=== PATIENT | female | born 1970 | race Caucasian/White ===

== ENCOUNTER 2022-03-22 00:39 | Day surgery (SDC) | payer OTHER, SELFPAY ==
[2022-03-12 10:51] VITALS: BMI 43.1
[2022-03-22 06:35] VITALS: BP 134/78; PULSE 82; RESP 18; TEMP 36.2; O2SAT 99; BMI 42.3
[2022-03-22] MEDS: LACTATED RINGERS 1,000 ML 150 ML IV CONT (06:49)
--- NOTE | 2022-03-22 06:59 | P.PNAN_ITS ---
Anes - Initial Pre Proc Eval Procedure: Operation Date: 03/22/22 07:30 Proposed Procedures p Screening Colonoscopy - Skyler Laguna MD Date/Time: 03/22/22 06:59 Surgeon: Skyler Laguna MD Pre Op Diagnosis: neoplasm screening Patient Data Age: 51 Gender: F Height: 1.63 m Weight: 111.8 kg Last Vital Signs Temp 36.2 C L 03/22/22 06:35 Pulse 82 03/22/22 06:35 Resp 18 03/22/22 06:35 BP 134/78 03/22/22 06:35 Pulse Ox 99 03/22/22 06:35 O2 Del Method Room Air 03/22/22 06:35 Allergies Allergy/AdvReac Type Severity Reaction Status Date / Time No Known Allergies Allergy Verified 03/22/22 06:33 Home Medications Medication Instructions Recorded Confirmed Type Iron (ferrous sulfate) 1 tab-cap PO DAILY 03/12/22 03/22/22 History Vitamin D3 1 tab-cap PO DAILY 03/12/22 03/22/22 History krill oil 1 tab-cap BYMOUTH DAILY 03/12/22 03/22/22 History Patient hx anesthesia problems: none Family hx anesthesia problems: none Results Review: All pre-operative results and documents have been reviewed as part of the pre- operative evaluation. [facility] Past Medical History Medical History CYNTHIA (obstructive sleep apnea) Social History Social History Smoking status: Never smoker Alcohol intake: current Alcohol use details: socially Substance use: never Substance use type: does not use Living arrangements: with family Spiritual care concerns: No Anes - Eval Final PreProcedure Day of Procedure 03/22/22 06:59 Patient weight: morbidly obese Heart: regular rate and rhythm Lungs: clear to auscultation Airway: Mallampati scale class II Neurological: alert and oriented Last oral intake: >/= 8 hours ASA classification: III Emergent: no Anesthetic plan: proceed Anesthesia type and monitoring: general GIVS and standard monitoring Results Review: All pre-operative results and documents have been reviewed as part of the pre- operative evaluation. Informed Consent: The patient's anesthetic plan and its attendant risks and benefits were discussed with the patient/family/POA. Questions were solicited and answers provided to the satisfaction of the patient/family/POA.
--- NOTE | 2022-03-22 07:19 | PM.HPGS ---
History of Present Illness History of Present Illness Consent: Risks, benefits, and alternatives have been discussed and questions answered. Patient agrees to proceed with procedure. Chief complaint: neoplasm screening Narrative: Janee Adan is a 51 year old female here for first screening colonoscopy Review of Systems Constitutional: Constitutional: Denies headache(s) and Denies weakness Eyes: Eyes: Denies blurry vision ENT: Reports Normal hearing present, Denies headache(s) and Denies neck pain Cardiovascular: Cardiovascular: Denies chest pain and Denies dyspnea Respiratory: Respiratory: Denies dyspnea Gastrointestinal: Gastrointestinal: Reports no additional gastrointestinal complaints Genitourinary: Genitourinary: Denies dysuria Musculoskeletal: Musculoskeletal: Denies neck pain Integumentary/Breasts: Skin/Breast: Denies dry skin Neurologic: Reports Normal hearing present, Denies headache(s) and Denies weakness Psychiatric: Psychiatric: Denies anxiety Endocrine: Endocrine: Denies change in body appearance Hematologic/Lymphatic: Hematologic/Lymphatic: Denies easy bleeding Allergic/Immunologic: Allergic/Immunologic: Denies urticaria [facility] Past Medical History Medical History (Updated 03/22/22 @ 07:20 by Skyler Laguna MD) Colon cancer screening CYNTHIA (obstructive sleep apnea) Social History Social History Smoking status: Never smoker Alcohol intake: current Alcohol use details: socially Substance use: never Substance use type: does not use Living arrangements: with family Spiritual care concerns: No Meds Home Medications and Allergies Home Medications Medication Instructions Recorded Confirmed Type Iron (ferrous sulfate) 1 tab-cap PO DAILY 03/12/22 03/22/22 History Vitamin D3 1 tab-cap PO DAILY 03/12/22 03/22/22 History krill oil 1 tab-cap BYMOUTH DAILY 03/12/22 03/22/22 History Allergies Allergy/AdvReac Type Severity Reaction Status Date / Time No Known Allergies Allergy Verified 03/22/22 06:33 Vital Signs Vital Signs - 24 hr 03/22/22 06:35 Temperature 97.1 F L Pulse Rate 82 Respiratory Rate 18 Blood Pressure 134/78 Pulse Oximetry 99 Oxygen Delivery Room Air Exam Const: General: comfortable and no acute distress HENMT: Face/Nose/Sinus: Normal nares present Eyes: General: appearance normal, both eyes and all related structures Neck: Neck: no JVD Resp: Auscultation: clear to auscultation bilaterally Cardio: Rate: regular rate Rhythm: regular rhythm GI: Inspection: non-distended GI Palp: Yes Soft to palpation Skin: General skin exam: normal color Neuro: General: gait normal Speech: normal speech Extrem: General: normal to inspection Psych: Mental Status: mental status grossly normal Assessment and Plan Assessment and plan (1) Colon cancer screening: Code(s): Z12.11 - Encounter for screening for malignant neoplasm of colon Status: Acute Assessment and Plan: colonoscopy
[2022-03-22 07:51] VITALS: BP 117/70; PULSE 79; RESP 19; O2SAT 99
[2022-03-22 08:01] VITALS: BP 121/78; PULSE 75; RESP 23; O2SAT 100
[2022-03-22 08:11] VITALS: BP 134/80; PULSE 71; RESP 16; O2SAT 100
== END 2022-03-22 08:18 | disposition home or self-care (01) ==
PROVIDERS: PCP Student in an Organized Health Care Education/Training Program; Visit Provider Internal Medicine Gastroenterology
PROC: 0DJD8ZZ Inspection of Lower Intestinal Tract, Via Natural or Artificial Opening Endoscopic (ICD-10-PCS; CPT 45378; principal; 2022-03-22 07:30)
DX: Z12.11 Encounter for screening for malignant neoplasm of colon (principal); K57.30 Diverticulosis of large intestine without perforation or abscess without bleeding; K64.8 Other hemorrhoids; G47.33 Obstructive sleep apnea (adult) (pediatric); E66.01 Morbid (severe) obesity due to excess calories; Z68.41 Body mass index [BMI] 40.0-44.9, adult
CPT/HCPCS: 45378; J2704; J7120

== ENCOUNTER → 2022-07-24 08:23 | Outpatient (CLI) | payer OTHER, SELFPAY ==
--- NOTE | ~2022-07-24 | MR_ITS ---
EXAMINATION: MR brain/brain stem wo/w con DATE: 07/24/2022 09:45 INDICATION: Vertigo. TECHNIQUE: Magnetic resonance imaging (MRI) of the brain and brainstem was performed without and with 20 mL MultiHance intravenous contrast. COMPARISON: Head CT 07/11/2014 FINDINGS: There is a punctate focus of increased T2-weighted signal intensity in the left frontal lob e, which is normal as an isolated finding. There is no intracranial hemorrhage, acute infarction, or abnormal intracranial mass lesion. The ventricles are normal in size. There is mild mucosal thickenin g in left maxillary sinus. The orbits are normal. The mastoid air cells are normal. IMPRESSION: 1. Normal brain. Reviewed, dictated and finalized at location A. IMPRESSION: 1. Normal brain.
== END ==
PROVIDERS: PCP Student in an Organized Health Care Education/Training Program; Visit Provider Student in an Organized Health Care Education/Training Program
DX: R42 Dizziness and giddiness (principal)
CPT/HCPCS: 70553; A9577

== ENCOUNTER 2023-01-29 17:13 | Emergency (ER) | payer OTHER, SELFPAY ==
[2023-01-29 17:45] VITALS: BP 150/74; PULSE 105; RESP 20; TEMP 36.8; O2SAT 98
--- NOTE | 2023-01-29 18:12 | ED.URI ---
HPI - URI/Sore Throat General Chief Complaint: Upper Respiratory Infection Stated Complaint: Sinus Time Seen by Provider: 01/29/23 17:50 Source: patient Mode of arrival: ambulatory Limitations: no limitations History of Present Illness HPI Narrative: Janee is a 52-year-old female patient presenting to the clinic today with complaints of runny nose, cough, ear pain, and sore throat. Symptoms have been going on for 2 days. She reports at the beginning of last month she had COVID. Got her flu shot on Friday and symptoms began on Friday. She denies any known fever, chills, or body aches. MD elicited complaint: cough, sore throat, rhinorrhea, nasal congestion and other (Ear pain) Related Data Home Medications Medication Instructions Recorded Confirmed Iron (ferrous sulfate) 1 tab-cap PO DAILY 03/12/22 01/29/23 Vitamin D3 1 tab-cap PO DAILY 03/12/22 01/29/23 krill oil 1 tab-cap BYMOUTH DAILY 03/12/22 01/29/23 Allergies Allergy/AdvReac Type Severity Reaction Status Date / Time No Known Allergies Allergy Verified 01/29/23 17:48 Review of Systems Review of Systems: Pertinent positives per HPI. Patient denies any fever, chills, rash, headache, visual changes, dizziness, shortness of breath, chest pain, palpitations, nausea, vomiting, diarrhea, constipation, abdominal pain, or any urinary issues. PMFSH Past Medical History Medical History Colon cancer screening CYNTHIA (obstructive sleep apnea) Social History Social History Smoking status: Never smoker Alcohol intake: current Alcohol use details: socially Substance use: never Substance use type: does not use Living arrangements: with family Spiritual care concerns: No Comments At the time of my signature, I reviewed and agree with the nursing past medical, surgical, social, and family history. There is no relevant family history pertinent to the patient complaint. Exam Narrative: General: Well-developed, well nourished, in no apparent distress Head: Normocephalic, atraumatic Eyes: Pupils equally round and reactive to light bilaterally, EOM intact, sclera and conjunctive clear, no discharge, lids normal Ears: TMs intact and congested, ear canals clear, no drainage, grossly hearing normal. Nose: Nares patent, clear discharge, no inflammation, no sinus tenderness. Mouth: Oral pharynx red without lesions or masses, good dentition, MMM. Postnasal drip Neck: Supple, trachea midline, no enlargement of anterior or posterior cervical nodes, no thyroid masses or goiter palpable. Cardio: Regular rate and rhythm, s1 and s2 normal, no murmur appreciated. Resp: Clear to auscultation bilaterally, no rhonchi, rales, wheezing or rubs Course Course Emergency Course: Portions of this record may have been created with voice recognition software. Level of Care: Express Care Visit Vital Signs Vital signs: Vital Signs Temperature 36.8 C 01/29/23 17:45 Pulse Rate 105 H 01/29/23 17:45 Respiratory Rate 20 01/29/23 17:45 Blood Pressure 150/74 H 01/29/23 17:45 Pulse Oximetry 98 01/29/23 17:45 Oxygen Delivery Room Air 01/29/23 17:45 Temperature 36.8 C 01/29/23 17:45 Pulse Rate 105 H 01/29/23 17:45 Respiratory Rate 20 01/29/23 17:45 Blood Pressure 150/74 H 01/29/23 17:45 Pulse Oximetry 98 01/29/23 17:45 Oxygen Delivery Room Air 01/29/23 17:45 Vital signs reviewed MDM - URI/Sore Throat MDM Narrative Medical decision making narrative: At the time of visit patient is resting comfortably on exam table. Strep screen was obtained and negative in the clinic today. We will send for culture. I suspect patient has URI with postnasal drip with pharyngitis. Supportive measures were discussed with the patient she voiced understanding discharge instructions and agrees to treatment plan. Prescription for pr
== END 2023-01-29 18:19 | disposition home or self-care (01) ==
PROVIDERS: Emergency Provider Nurse Practitioner Family; PCP Student in an Organized Health Care Education/Training Program
DX: J06.9 Acute upper respiratory infection, unspecified (principal); B34.9 Viral infection, unspecified; R09.82 Postnasal drip; J02.9 Acute pharyngitis, unspecified
CPT/HCPCS: 87081; 87880; 99213; G0463

== ENCOUNTER 2025-03-04 12:39 | Outpatient (CLI) | payer OTHER, SELFPAY ==
--- NOTE | ~2025-03-04 | MR_ITS ---
EXAMINATION: MR lumbar spine wo con DATE: 03/04/2025 13:04 INDICATION: Lumbar radiculopathy TECHNIQUE: Magnetic resonance imaging (MRI) of the lumbar spine was performed without intravenous contrast. Sequences included sagittal T2-weighted FSE, sagittal T2-weighted FS FSE, sagittal T1-weighted FSE, and axial T2-weighted FSE. COMPARISON: None FINDINGS: Alignment is normal. Vertebral body heights are normal. T1 hyperintense fat saturating hemangioma in L3. Diffuse red marrow reexpansion which can be seen in setting of anemia. No pathologic marrow replacing process. Mild disc height loss and annular fissure at L4-L5. Moderate disc height loss at L5-S1 which may be developmental as the L5 segment is transitional, sacralized on the left.. The conus medullaris terminates at T12-L1. There is normal signal in the caudal spinal cord. Paravertebral soft tissues are unremarkable. The following disc levels are specifically discussed: T12-L1: The disc does not extend beyond the endplate margin. There is mild bilateral facet joint osteoarthritis. There is no neural foraminal stenosis. There is no central canal stenosis. L1-L2: The disc does not extend beyond the endplate margin. There is mild bilateral facet joint osteoarthritis. There is no neural foraminal stenosis. There is no central canal stenosis. L2-L3: Minimal bilateral foraminal zone disc protrusions. There is mild bilateral facet joint osteoarthritis. There is mild bilateral neural foraminal stenosis. There is no central canal stenosis. L3-L4: Small bilateral foraminal zone disc protrusions. There is mild right facet joint osteoarthritis. There is mild to moderate bilateral neural foraminal stenosis. There is no central canal stenosis. L4-L5: Disc is mildly bulging with superimposed small central disc extrusion with disc material extending up to 4 mm caudal to the level of the superior endplate of L5. There is mild to moderate bilateral facet joint osteoarthritis. There is moderate bilateral neural foraminal stenosis. There is mild central canal stenosis. L5-S1: Disc is mildly bulging. There is mild bilateral facet joint osteoarthritis. There is no neural foraminal stenosis. There is no central canal stenosis. IMPRESSION: 1. Mild lower lumbar predominant spondylosis. Reviewed, dictated and finalized at location A. [employer]
== END 2025-03-04 12:40 | disposition home or self-care (01) ==
LOC: MICIMG 12:40
PROVIDERS: PCP Student in an Organized Health Care Education/Training Program; Visit Provider Student in an Organized Health Care Education/Training Program
DX: M47.26 Other spondylosis with radiculopathy, lumbar region (principal)
CPT/HCPCS: 72148